=== PATIENT | female | born 1960 | race African-American/Black ===

== ENCOUNTER 2016-12-18 04:53 | Day surgery (SDC) | payer OTHER, MEDICARE ==
[~2016-12-18 04:53] MED LIST: COZ50 PO; GLUCPH PO; METHOC750B PO; MOBIC15 MG PO; NEUR100 PO; NORCO1 TA1 PO; SEROQUEL XR150 MG PO; VENTOLIN HFA INH; [UNRECOGNIZED DRUG - REMARK]
== END 2016-12-18 08:27 | disposition home or self-care (01) ==
LOC: SDC 04:53
PROVIDERS: Orthopaedic Surgery
PROC: B01BZZZ Fluoroscopy of Spinal Cord (ICD-10-PCS; 2016-12-18)
PROC: 3E0R3BZ Introduction of Anesthetic Agent into Spinal Canal, Percutaneous Approach (ICD-10-PCS; principal; 2016-12-18 07:30)
DX: M54.5 Low back pain (principal); M54.16 Radiculopathy, lumbar region; G43.909 Migraine, unspecified, not intractable, without status migrainosus; I10 Essential (primary) hypertension; J45.909 Unspecified asthma, uncomplicated; M19.90 Unspecified osteoarthritis, unspecified site; E11.9 Type 2 diabetes mellitus without complications; F32.9 Major depressive disorder, single episode, unspecified; F43.10 Post-traumatic stress disorder, unspecified; Z98.890 Other specified postprocedural states
CPT/HCPCS: 82962; J1040; J2250; J3010; Q9967